=== PATIENT | female | born 1980 | race Caucasian/White ===

== ENCOUNTER 2016-07-12 08:23 | Day surgery (SDC) | payer OTHER ==
[2016-07-10 09:12] LABS: HEMATOCRIT 37.9 % (36.0-47.0); HEMOGLOBIN 12.4 g/dL (12.0-15.5); HGB HCT DIFFERENCE -0.7; MEAN CORPUSCULAR HEMOGLOBIN 27.5 pg (27.0-33.4); MEAN CORPUSCULAR HGB CONC 32.8 g/dL (32.0-36.0); MEAN CORPUSCULAR VOLUME 84 fl (80-97); RED BLOOD COUNT 4.52 10^6/uL (3.72-5.28); RED CELL DISTRIBUTION WIDTH 14.3 % (11.5-14.0); WHITE BLOOD COUNT 3.5 10^3/uL (4.0-10.5)
[2016-07-10 09:23] LABS: PROTHROMBIN TIME 12.6 SEC (11.4-15.4)
[2016-07-10 09:24] LABS: PARTIAL THROMBOPLASTIN TIME 26.7 SEC (23.5-35.8)
[2016-07-10 09:30] LABS: ALANINE AMINOTRANSFERASE 33 U/L (9-52); ALBUMIN 4.1 g/dL (3.5-5.0); ALKALINE PHOSPHATASE 43 U/L (38-126); ANION GAP 10 (5-19); ASPARTATE AMINO TRANSFERASE 18 U/L (14-36); BILIRUBIN,DIRECT 0.2 mg/dL (0.0-0.4); BILIRUBIN,TOTAL 0.3 mg/dL (0.2-1.3); BLOOD UREA NITROGEN 12 mg/dL (7-20); CALCIUM 9.4 mg/dL (8.4-10.2); CARBON DIOXIDE 28 mmol/L (22-30); CHLORIDE 104 mmol/L (98-107); CREATININE RESULT 0.61 mg/dL (0.52-1.25); GLUCOSE 97 mg/dL (75-110); SODIUM 141.9 mmol/L (137-145); TOTAL PROTEIN 6.8 g/dL (6.3-8.2)
--- NOTE | 2016-07-10 17:49 | EKG REPORT ---
SEVERITY:- NORMAL ECG - SINUS RHYTHM : Confirmed by: Jacquie Aldana MD 10-Jul-2016 17:48:11
[~2016-07-12 08:23] MED LIST: CEFAZOLIN SODIUM 3 GM in DEXTROSE 5%-WATER 100 ML IV PRN; DEXAMETHASONE SOD PHOSPHATE INJ 4 MG/1 ML VIAL ONE; GLYCOPYRROLATE INJ 0.4 MG/2 ML VIAL ONE; LACTATED RINGERS 1000 ML IV PRN; LIDOCAINE 0.5% INJ-PF (5 MG/ML) 50 ML SDV SUBCUT PRN; LIDOCAINE 2% INJ-PF (20 MG/ML) 10 ML AMPUL ONE; METOCLOPRAMIDE HCL INJ/PF 10 MG/2 ML SDV ONE; NEOSTIGMINE METHYLSULFATE 10 MG/10 ML VIAL ONE; ONDANSETRON HCL INJ/PF 4 MG/2 ML SDV ONE; RINGERS SOLUTION,LACTATED 1,000 ML IV PRN; ROCURONIUM BROMIDE INJ 50 MG/5 ML VIAL IV ONE; SUCCINYLCHOLINE CHLORIDE INJ 200 MG/10 ML VIAL ONE
[2016-07-12] MEDS ORDERED: BUPIVACAINE HCL 0.25 % INJ/PF (2.5 MG/1 ML) 30 ML VIAL ONE (08:25)
[2016-07-12] MEDS ORDERED: FAMOTIDINE INJ/PF 20 MG/2 ML SDV IV PRN (09:40)
[2016-07-12] MEDS ORDERED: SCOPOLAMINE HYDROBROMIDE 1.5 MG PATCH.TD72 TD PRN (09:40)
[2016-07-12] MEDS ORDERED: ACETAMINOPHEN 100 ML IV ONE (10:13)
[2016-07-12] MEDS ORDERED: FENTANYL CITRATE INJ/PF 250 MCG/5 ML AMPULE ONE (10:13)
[2016-07-12] MEDS ORDERED: PROPOFOL INJ 200 MG/20 ML VIAL IV ONE (10:13)
[2016-07-12] MEDS ORDERED: MIDAZOLAM 2 MG/2 ML INJ ONE (10:13)
[2016-07-12] MEDS ORDERED: FENTANYL CITRATE INJ/PF 100 MCG/2 ML AMPUL ONE (10:13)
[2016-07-12] MEDS ORDERED: MORPHINE SULFATE 10 MG/ML INJ ONE (10:14)
[2016-07-12] MEDS ORDERED: FENTANYL CITRATE INJ/PF 100 MCG/2 ML AMPUL IV PRN ×3 (11:18)
[2016-07-12] MEDS ORDERED: MORPHINE SULFATE 10 MG/ML INJ IV PRN ×3 (11:18→20:07)
[2016-07-12] MEDS ORDERED: DIPHENHYDRAMINE HCL 50 MG/ML VIAL IV PRN (11:18)
[2016-07-12] MEDS ORDERED: MEPERIDINE HCL/PF INJ 25 MG/1 ML DISP.SYRIN IV PRN (11:18)
[2016-07-12] MEDS ORDERED: PROMETHAZINE HCL INJ 25 MG/1 ML VIAL IV PRN ×2 (11:18)
[2016-07-12] MEDS ORDERED: OXYCODONE-ACETAMINOPHEN 5-325 MG TABLET PO PRN ×2 (11:18)
[2016-07-12] MEDS ORDERED: CEFAZOLIN INJ 1 GM VIAL ONE (14:21)
[2016-07-12 15:42] LABS: HEMATOCRIT 36.5 % (36.0-47.0); HEMOGLOBIN 11.7 g/dL (12.0-15.5); HGB HCT DIFFERENCE -1.4; MEAN CORPUSCULAR HEMOGLOBIN 26.9 pg (27.0-33.4); MEAN CORPUSCULAR HGB CONC 32.1 g/dL (32.0-36.0); MEAN CORPUSCULAR VOLUME 84 fl (80-97); RED BLOOD COUNT 4.36 10^6/uL (3.72-5.28); RED CELL DISTRIBUTION WIDTH 14.3 % (11.5-14.0)
[2016-07-12 16:07] LABS: WHITE BLOOD COUNT 20.7 10^3/uL (4.0-10.5)
[2016-07-12] MEDS ORDERED: KETOROLAC TROMETHAMINE INJ/PF 30 MG/1 ML SDV ONE (16:24)
[2016-07-12] MEDS ORDERED: PROMETHAZINE HCL INJ 50 MG/1 ML VIAL IM ONE (16:30)
[2016-07-12] MEDS ORDERED: RINGERS SOLUTION,LACTATED 1,500 ML IV ONE (17:00)
[2016-07-12] MEDS ORDERED: KETOROLAC TROMETHAMINE INJ/PF 30 MG/1 ML SDV IV PRN (20:07)
[2016-07-12] MEDS ORDERED: ONDANSETRON HCL INJ/PF 4 MG/2 ML SDV IV PRN (20:08)
[2016-07-13] MEDS: OXYCODONE-ACETAMINOPHEN 5-325 MG TABLET PO PRN ×2 (04:07→10:00)
--- NOTE | 2016-07-13 07:27 | OPERATIVE REPORT E ---
Operative Report NAME: ELOISA CELESTIN : 1980 AGE: 36Y DATE OF SURGERY: 07/12/2016 ROOM: 208 INDICATION: This is a 36-year-old 3, para 3, with a history of 2 prior c-sections, with a known large fibroid uterus,____ weeks in size, with normal endometrial biopsy, significant pelvic symptoms and heavy bleeding, requiring 2 units transfusion 3 months ago. Patient was subsequently nicely. After discussing risks, benefits, alternatives and indications, the patient decided to proceed with definitive surgery via robotic assisted total laparoscopic hysterectomy, bilateral salpingectomy, and cystoscopy for abnormal uterine bleeding and pelvic symptoms secondary to a symptomatic fibroid uterus. PROCEDURES PERFORMED: 1. Robotic assisted total laparoscopic hysterectomy and bilateral salpingectomy. 2. Cystoscopy. 3. Vaginal coring and removal of large fibroid uterus. SURGEON: TIA GALVAN M.D. [employer] CONSULTANT: Violetta Jones M.D. ESTIMATED BLOOD LOSS: 500 mL. TOTAL INTRAVENOUS FLUIDS: 2500 mL of Lactated ringers. URINE OUTPUT: 275 mL. FINDINGS: Large multifibroid uterus to the level of the pelvic brim with significant parasitic/collateral blood flow from multiple vessels from the pelvic sidewall and from the infundibular pelvic ligament, primarily on the left hand side, with normal appearing bladder, mucosa, and bilateral ureteral jets on cystoscopy. SPECIMENS: Uterus, cervix, and right and left fallopian tubes. COMPLICATIONS: None. ANESTHESIA: General. PROCEDURE IN DETAIL: After the consent was confirmed with the patient in the preoperative holding area, the patient was then taken to the OR where general anesthesia was found to be adequate. The patient was then placed in a low lithotomy position with arms tucked, after which the patient was prepped and draped in a sterile fashion. A timeout was completed and preoperative antibiotics were given. Prior to starting surgery, the patient was placed in steep Trendelenburg position on a Gelfoam pad and did not slide, after which a timeout was completed. Attention was then turned to the patient's vagina where a weighted speculum was placed and a George retractor was used to expose the anterior lip of the cervix. This was then grasped with a single-toothed tenaculum. The uterus was dilated to approximately a 16-Danish, and sounded to approximately 20 cm. A large V-Care uterine manipulator was then placed the appropriate depth and the balloon tip inflated. The V-Care Dara cup was then advanced and put in place. A Zuniga catheter was then placed for the remainder of the procedure. At this point in time, all instruments were taken out from the vagina. Attention was turned to the patient's abdomen. A 12-mm vertical midline incision was then made approximately 5 cm superior to the umbilicus after injecting 2 mL of 0.25% Marcaine in the subcutaneous tissue. Using a Veress needle with CO2 gas on high flow, the anterior abdominal wall was tented with a Aruna grasping the patient's fascia, and a Veress needle was then passed into the abdomen with appropriate drop in intraabdominal pressure to approximately 0 mmHg. The abdomen was then insufflated to approximately 15 mmHg with CO2 gas, after which a 12-mm trocar was then placed directly while tenting up the anterior abdominal wall. A 10-mm Decoholicinci camera was placed intra abdominally confirming proper placement without injury to abominal contents. The technical assistant port site was then identified approximately 8 cm lateral and 1 cm superior to the camera port, cleared, and the skin infused with 3 mL of 0.25% Marcaine and incised and the technical assistant port placed under direct visualization. A site 10 cm inferior and lateral to the technical assistant port, was identified,the skin was infused with 3 mL of 0.25% Marcaine, marked and incised, and the #1 arm robotic port placed under direct visualization without difficulty. Attention was then turned to the left-hand side of the patient approximately 8 cm lateral to the camera port, infused with 3 mL of 0.25% Marcaine, marked, incised and #2 robotic port placed under direct visualization. The #3 port was indentified laterally and inferiorly approximately 10 cm form the #2 port, infused with 3 mL of 0.25% Marcaine, marked, incised, and the #3 port placed under direct visualization. At this point in time, all robotic arms in placed, the robot was then side docked in the usual fashion and the robotic arms attached . The #1 arm was armed with monopolar scissors. The #2 arm armed with fenestrated bipolar graspers. The #3 arm armed with the Prograsp. At this point in time, all the ports were inspected without evidence of injury and Dr. Galvan degowned and zohreh to the robotic console. Inspectio nof the abdomen revealed adhesions of the omentum to the anterior abdominal wall which were taken down using monopolar scissors and cautery. Starting on the right-hand side, the distal fimbriated portion of the right fallopian tube that remained after previous tubal ligation was then from the mesosalpinx and removed through the technical assistant port. Attention was then turned to the right-hand side where the right broad ligament was opened, then opened parallel to IP vasculature superiorly above the pelvic brim for better visualization on the right ureter which was identified, coursing well below the IP vasculature and away from the uterus. There were numerous parasitic vessels noted coming from the pelvic sidewall. First the proximal tubal remnant and utero-ovarian ligament and artery were and secured with bipolar cautery multiple times and then incised and cut with monopolar scissors. The parasitic vessels coming in from the superior right-hand side were then coagulated with bipolar cautery and cut with monopolar scissors. The right broad ligament was then taken down anteriorly as well, allowing better mobilization of the uterus. The broad ligament was then taken down inferiorly using a combination of bipolar cautery and monopolar scissors to control bleeding, and ligated parasitic vessels down to the level of the internal os. At this time, attention was turned to the left-hand side where the left infundibular pelvic ligament was identified immediately adajacent to the Left ovary which was attached to the left-hand side of the uterus with parasitic vessels coming from the IP ligament and vasculature. The ovary and the IP vasculature were then from the uterus, using a combination of bipolar cautery and monopolar scissors with excellent hemostasis noted, making sure to stay tightly to the uterus to avoid compromising blood flow to the ovary. Once this was , the broad ligament was opened and then opened up till over the pelvic brim, parallel to the IP ligament and vasculature, in order to identify the ureter which was identified on medial leaf in the pericolic space below the IP ligament. A window was made underneath the IP ligament and vasculature allowing complete separation from the meter record clerk uterus. At this point in time, the broad ligament was taken down anteriorly down to the level of the internal os on the left-hand side and there was a better space here allowed to identify the bladder. The vessels of the broad ligament were taken down inferiorly using bipolar coagulation and monopolar scissors. Bladder flap was started on the left-hand side, which was carried across all the way to the right-hand side with minimal adhesions from prior , then the swept below the level of the cuff anteriorly, and feeder vessels coagulated with minimal blood loss. At this point in time, attention was then turned to the posterior portion of the uterus with the serosa over the Dara cup identified and incised. Starting on the left-hand side, the broad ligament was taken down completely and the left uterine artery was identified, and multiple parasitic vessels from the broad ligament identified, coagulated, and cut. The cardinal ligament was then taken down on the left-hand side using extreme lateral Right displacement, staying over the Dara cup, allowing the cardinal ligament to fall away laterally staying well away from the ureter. At this point in time, attention was turned to the posterior portion of the uterus, and starting on the right-hand side, the right uterine artery was identified, coagulated x3, and cut. Large bundles of parasitic vessels were noted parallel to the broad ligament and the uterosacral ligament posteriorly, and these were coagulated x2 just above the Dara cup and cut with difficult hemostasis, but eventually attained with bipolar energy. The right posterior serosa was incised in preparation for the colpotomy. The right cardinal ligament was taken down in a similar fashion to the left side, with maximal left uterine displacement, letting the cardinal ligament fall away. The colpotomy was begun starting on the right-hand side approximately 3:00 position, posteriorly to the 9:00 position with good visualization of the Dara cup. At this point in time, the uterus was then tilted posteriorly and the remainder of the colpotomy was completed anteriorly from the 9:00 position to the 3:00 position. At this point in time, the uterus was from its attachment points and the uterus was then delivered vaginally using vaginal coring/morcellation and using sharp dissection, making sure to stay inside the uterus, taking out large portion of fibroids while keeping the exterior portion of the uterus intact. After which, the uterus was then collapsed and delivered. Bulb suction syringe was then placed in the vagina to maintain pneumoperitoneum. Attention was then turned to the pelvis which was then irrigated copiously. All bleeders were identified and made hemostatic. A portion of the left fallopian tube was identified on the left ovary that was scarred directly to the ovary and this was removed with good hemostasis noted, and then that portion of the tube removed through the technical assistant port. After copious irrigation,the #1 arm was armed with a cliff suture needle buggy driver, and the #2 arm armed with the Prograsp the vaginal cuff was then closed using a V-Loc suture in running non-locking fashion making sure to incorporate posterior peritoneum and the bilateral uterosacral ligaments. After the closure was completed, the vaginal cuff was inspected and noted to be hemostatic. Cystoscopy was then performed with the findings as noted above. We then turned to the abdomen, and all ports were then removed and gas allowed to escape. The vertical midline incision fascia was grasped, closed with a single interrupted 0-Vicryl on a UR-6. The skin was then closed using subcuticular stitches of 4-0 Monocryl and a Dermabond dressing applied to each incision. A Zuniga catheter remained in place. The vaginal inspection revealed no lacerations from the morcellation. Specimen was sent off. The robot was undocked. Patient was taken out of steep Trendelenburg position, recovered from anesthesia in a supine position, and taken to the postanesthesia care unit in good condition. All sponge, needle, and instrument counts were correct x2, and the patient tolerated the procedure well. Please note, after vaginal morcellation of the uterus was completed, . DICTATING PHYSICIAN: TIA GALVAN M.D. [id number] PHY#: [id number] ID: [id number] JOB#: [id number] ACCT: [id number] cc:TIA GALVAN M.D. > MTDChristophe
[2016-07-13 08:04] LABS: HEMATOCRIT 28.5 % (36.0-47.0); HEMOGLOBIN 9.7 g/dL (12.0-15.5); HGB HCT DIFFERENCE 0.6; MEAN CORPUSCULAR HGB CONC 33.9 g/dL (32.0-36.0); MEAN CORPUSCULAR VOLUME 83 fl (80-97); RED BLOOD COUNT 3.45 10^6/uL (3.72-5.28); RED CELL DISTRIBUTION WIDTH 14.3 % (11.5-14.0); WHITE BLOOD COUNT 7.4 10^3/uL (4.0-10.5)
[2016-07-13 10:52] VITALS: BP 130/81
== END 2016-07-13 13:05 | disposition home or self-care (01) ==
LOC: OROUT 08:23 → 2N 13:33 → UNDOADMIN 13:33 → 2N 17:33 → OROUT 20:30 → UNDODISIN 07-13 13:05 → OROUT 07-13 13:05
PROVIDERS: ATTEND Obstetrics & Gynecology
PROC: 0UTC4ZZ Resection of Cervix, Percutaneous Endoscopic Approach (ICD-10-PCS; 2016-07-12)
PROC: 0UT74ZZ Resection of Bilateral Fallopian Tubes, Percutaneous Endoscopic Approach (ICD-10-PCS; 2016-07-12)
PROC: 8E0W0CZ Robotic Assisted Procedure of Trunk Region, Open Approach (ICD-10-PCS; 2016-07-12)
PROC: 0UT97ZZ Resection of Uterus, Via Natural or Artificial Opening (ICD-10-PCS; 2016-07-12)
PROC: 0UTC7ZZ Resection of Cervix, Via Natural or Artificial Opening (ICD-10-PCS; 2016-07-12)
PROC: 0UT94ZZ Resection of Uterus, Percutaneous Endoscopic Approach (ICD-10-PCS; principal; 2016-07-12 11:15)
DX: N72 Inflammatory disease of cervix uteri (principal); D25.9 Leiomyoma of uterus, unspecified; N92.0 Excessive and frequent menstruation with regular cycle; N93.9 Abnormal uterine and vaginal bleeding, unspecified; R10.2 Pelvic and perineal pain; K21.9 Gastro-esophageal reflux disease without esophagitis; Z79.899 Other long term (current) drug therapy
CPT/HCPCS: 58290; 58573; S2900; 36415; 80053; 81025; 840; 85027; 85610; 85730; 86850; 86900; 86901; 88307; 93005; 93010; J0131; J0330; J0690; J1100; J1885; J2250; J2270; J2405; J2550; J2704; J2765; J3010; J3490; J7120; S0028